=== PATIENT | male | born 1960 | race Caucasian/White ===

== ENCOUNTER → 2021-12-06 | Day surgery (SDC) | payer OTHER ==
[~2021-12-06] VITALS: Ht 177.8 cm; Wt 100.3 kg
[~2021-12-06] MED LIST: ASPIRIN EC81 MG PO; OLMSRTN-AMLDPN1 EAC1 PO; ROSUVASTATIN CA10 MG PO
[2021-12-06 09:48] LABS: HCT 41.2 % (42.0-52.0); HGB 14.2 g/dl (13.2-18.0); MCH 30.1 pg (25.0-31.0); MCHC 34.5 g/dL (32.0-36.0); MCV 87.5 fL (78.0-100.0); MPV 9.7 fL (6.0-9.5); RBC 4.71 M/uL (4.70-6.00); RDW 12.6 % (11.5-14.0); WBC 9.1 K/uL (4.0-10.5)
[2021-12-06 09:50] LABS: ALBUMIN 4.6 g/dL (3.4-5.0); BUN/CREAT RATIO (CALC) 18.5 RATIO; CREATININE 1.08 mg/dL (0.67-1.17); GLOBULIN (CALCULATION) 3.2 g/dL; POTASSIUM 4.2 mmol/L (3.5-5.1); TOTAL PROTEIN 7.8 g/dL (6.4-8.2)
== END | disposition home or self-care (01) ==
LOC: FAS 08:29
PROVIDERS: Surgery
DX: Z12.11 Encounter for screening for malignant neoplasm of colon (principal); K57.30 Diverticulosis of large intestine without perforation or abscess without bleeding; I10 Essential (primary) hypertension; E78.00 Pure hypercholesterolemia, unspecified; I25.10 Atherosclerotic heart disease of native coronary artery without angina pectoris; G47.33 Obstructive sleep apnea (adult) (pediatric); Z99.89 Dependence on other enabling machines and devices; Z79.82 Long term (current) use of aspirin; Z79.899 Other long term (current) drug therapy
CPT/HCPCS: 36415; 80053; J2704; J7120